=== PATIENT | female | born 1960 | race Caucasian/White ===

== ENCOUNTER → 2017-03-01 | Outpatient (CLI) | payer OTHER | LOC: BHSO 11:11 | DX: F33.41 Major depressive disorder, recurrent, in partial remission (principal) | CPT/HCPCS: 90791-AI ==

== ENCOUNTER → 2017-04-19 | Outpatient (CLI) | payer OTHER | LOC: BHSO 15:28 | DX: F33.41 Major depressive disorder, recurrent, in partial remission (principal) | CPT/HCPCS: G0463 ==

== ENCOUNTER → 2017-05-05 | Outpatient (CLI) | payer OTHER | LOC: BHSO 13:12 | DX: F33.1 Major depressive disorder, recurrent, moderate (principal) ==

== ENCOUNTER → 2017-05-08 | Outpatient (CLI) | payer OTHER | LOC: BHSO 09:04 | DX: F33.1 Major depressive disorder, recurrent, moderate (principal) ==

== ENCOUNTER → 2017-05-22 | Outpatient (CLI) | payer OTHER | LOC: BHSO 08:53 | DX: F33.1 Major depressive disorder, recurrent, moderate (principal) ==

== ENCOUNTER → 2017-06-05 | Outpatient (CLI) | payer OTHER | LOC: BHSO 09:00 | DX: F33.1 Major depressive disorder, recurrent, moderate (principal) ==

== ENCOUNTER → 2017-07-03 | Outpatient (CLI) | payer OTHER | LOC: BHSO 09:02 | DX: F32.1 Major depressive disorder, single episode, moderate (principal) ==

== ENCOUNTER → 2017-07-27 | Outpatient (CLI) | payer OTHER | LOC: BHSO 11:25 | DX: F33.41 Major depressive disorder, recurrent, in partial remission (principal) | CPT/HCPCS: G0463 ==

== ENCOUNTER 2017-08-02 13:36 | Outpatient (RCR) | payer OTHER | END 2017-08-15 | disposition home or self-care (01) | LOC: COL.CR | DX: Z48.812 Encounter for surgical aftercare following surgery on the circulatory system (principal); Z95.5 Presence of coronary angioplasty implant and graft; I25.10 Atherosclerotic heart disease of native coronary artery without angina pectoris ==

== ENCOUNTER 2017-10-13 09:33 | Day surgery (SDC) | payer MEDICARE, OTHER ==
[~2017-10-13] VITALS: Ht 160 cm; Wt 80.8 kg
[2017-10-13] MEDS ORDERED: RT ADVAIR 528 DISKUS IH (09:57)
[2017-10-13] MEDS ORDERED: ASPIRIN 81M81 MG/TA2 PO (09:58)
[2017-10-13] MEDS ORDERED: ATIVAN 0.50.5 MG/TAB PO (09:58)
[2017-10-13] MEDS ORDERED: BRILINTA90 MG PO (09:58)
[2017-10-13] MEDS ORDERED: CYMBALTA 60MG60 MG PO (09:59)
[2017-10-13] MEDS ORDERED: CRESTOR40 MG PO (09:59)
[2017-10-13] MEDS ORDERED: IMDUR 60MG60 MG/TAB PO (09:59)
[2017-10-13] MEDS ORDERED: KLOR-CON M2020 MEQ PO (10:00)
[2017-10-13] MEDS ORDERED: LASIX 20MG TABL20 MG PO (10:00)
[2017-10-13] MEDS ORDERED: TOPROL XL 50MG50 MG PO (10:01)
[2017-10-13] MEDS ORDERED: MAG-OX 400400 MG/TAB PO (10:01)
[2017-10-13] MEDS ORDERED: NEURONTIN100 MG/CAP PO (10:01)
[2017-10-13] MEDS ORDERED: OXAYDO5 MG PO (10:02)
[2017-10-13] MEDS ORDERED: NITROSTAT0.4 MG/TAB SL (10:02)
[2017-10-13] MEDS ORDERED: RANEXA1000 MG PO (10:02)
[2017-10-13] MEDS ORDERED: REQUIP 0.5MG0.5 MG PO (10:03)
[2017-10-13] MEDS ORDERED: SINGULAIR 110 MG/TAB PO (10:03)
[2017-10-13] MEDS ORDERED: TOPAMAX 100MG100 M1 PO (10:04)
[2017-10-13] MEDS ORDERED: SYNTHROID0.175 MG PO (10:04)
[2017-10-13] MEDS ORDERED: CLARITIN 1010 MG/TAB PO (10:05)
[2017-10-13] MEDS ORDERED: WELLBUTRIN XL300 M1 PO (10:05)
[2017-10-13] MEDS ORDERED: ZANTAC 150MG T150 MG PO (10:05)
[2017-10-13] MEDS ORDERED: ZANAFLEX 4MG TAB4 MG PO (10:05)
[2017-10-13] MEDS ORDERED: MELAT3MGTAB PO (10:06)
[2017-10-13] MEDS ORDERED: THE MEDICINE S200 M2 PO (10:06)
[2017-10-13] MEDS ORDERED: VITAMIND3 5000 PO (10:07)
[2017-10-13] MEDS ORDERED: TYLENOL 500MG500 MG PO (10:07)
[2017-10-13] MEDS ORDERED: MULTIVITAMIN FO1 CAP PO (10:08)
[2017-10-13 10:09] VITALS: BP 123/70; PULSE 77; TEMP 98.4
[2017-10-13 11:20] VITALS: BP 103/62; PULSE 67; TEMP 97
[2017-10-13 11:35] VITALS: BP 103/64; PULSE 68
[2017-10-13 11:50] VITALS: BP 119/67; PULSE 68
== END 2017-10-13 12:07 | disposition home or self-care (01) ==
LOC: SDCO 09:33
DX: Z12.11 Encounter for screening for malignant neoplasm of colon (principal); D12.0 Benign neoplasm of cecum; D12.5 Benign neoplasm of sigmoid colon; K31.84 Gastroparesis; K29.30 Chronic superficial gastritis without bleeding; K21.9 Gastro-esophageal reflux disease without esophagitis; K59.00 Constipation, unspecified; E78.00 Pure hypercholesterolemia, unspecified; D64.9 Anemia, unspecified; K59.09 Other constipation; J45.909 Unspecified asthma, uncomplicated; F32.9 Major depressive disorder, single episode, unspecified; F41.9 Anxiety disorder, unspecified; Z88.6 Allergy status to analgesic agent; Z88.8 Allergy status to other drugs, medicaments and biological substances; Z79.82 Long term (current) use of aspirin; Z90.710 Acquired absence of both cervix and uterus; Z90.10 Acquired absence of unspecified breast and nipple; Z85.3 Personal history of malignant neoplasm of breast; Z80.0 Family history of malignant neoplasm of digestive organs
CPT/HCPCS: J2704; J7120

== ENCOUNTER 2017-11-16 10:22 | Day surgery (SDC) | payer MEDICARE, OTHER ==
[2017-11-16] VITALS (13 sets, daily range): BP systolic 90–111; BP diastolic 59–67; PULSE 70–83; TEMP 97.9
[~2017-11-16] VITALS: Ht 160.1 cm; Wt 80.9 kg
[~2017-11-16 10:22] MED LIST: ASPIRIN 81M81 MG/TA2 PO; ATIVAN 0.50.5 MG/TAB PO; BRILINTA90 MG PO; CLARITIN 1010 MG/TAB PO; CRESTOR40 MG PO; CYMBALTA 60MG60 MG PO; IMDUR 60MG60 MG/TAB PO; KLOR-CON M2020 MEQ PO; LASIX 20MG TABL20 MG PO; MAG-OX 400400 MG/TAB PO; MELAT3MGTAB PO; MULTIVITAMIN FO1 CAP PO; NEURONTIN100 MG/CAP PO; NITROSTAT0.4 MG/TAB SL; OXAYDO5 MG PO; RANEXA1000 MG PO; REQUIP 0.5MG0.5 MG PO; RT ADVAIR 528 DISKUS IH; SINGULAIR 110 MG/TAB PO; SYNTHROID0.175 MG PO; THE MEDICINE S200 M2 PO; TOPAMAX 100MG100 M1 PO; TOPROL XL 50MG50 MG PO; TYLENOL 500MG500 MG PO; VITAMIND3 5000 PO; WELLBUTRIN XL300 M1 PO; ZANAFLEX 4MG TAB4 MG PO; ZANTAC 150MG T150 MG PO
[2017-11-16 10:58] LABS: HEMATOCRIT 39.1 % (37.0-47.0); HEMOGLOBIN 13.3 g/dl (12.5-16.0); MEAN CELL VOLUME 93 fl (80.0-100.0); MEAN CORPUSCULAR HEMOGLOBIN 32 pg (27.0-31.0); MEAN CORPUSCULAR HGB CONC 34 g/dl (33.0-37.0); MEAN PLATELET VOLUME 8.9 fl (7.4-10.4); PLATELET COUNT 236 K/mm3 (130-400); RED BLOOD COUNT 4.21 M/mm3 (4.10-5.30); REDCELL DISTRIBUTION WIDTH-CV 13.1 % (11.5-14.5)
[2017-11-16] MEDS ORDERED: ACIPHEX20 MG PO (11:03)
[2017-11-16] MEDS ORDERED: ALIGN PO (11:04)
[2017-11-16] MEDS ORDERED: IRON TABLETS325 MG PO (11:05)
[2017-11-16 11:07] LABS: PROTHROMBIN TIME 11.3 SECONDS (9.7-12.8)
[2017-11-16 11:08] LABS: CALCIUM 8.9 mg/dL (8.4-10.2); CREATININE, serum 1.28 mg/dL (0.52-1.25); POTASSIUM 3.5 mmol/L (3.4-5.0)
[2017-11-16] MEDS ORDERED: TOPROL XL 50MG50 MG PO (12:30)
== END 2017-11-16 17:58 | disposition home or self-care (01) ==
LOC: COL.CAR 10:22
PROVIDERS: Internal Medicine Cardiovascular Disease
DX: I25.110 Atherosclerotic heart disease of native coronary artery with unstable angina pectoris (principal); J45.909 Unspecified asthma, uncomplicated; I11.0 Hypertensive heart disease with heart failure; I50.9 Heart failure, unspecified; E78.5 Hyperlipidemia, unspecified; E03.9 Hypothyroidism, unspecified; G62.9 Polyneuropathy, unspecified; R41.3 Other amnesia; Z90.710 Acquired absence of both cervix and uterus; Z90.13 Acquired absence of bilateral breasts and nipples; Z96.651 Presence of right artificial knee joint; Z95.1 Presence of aortocoronary bypass graft; Z95.5 Presence of coronary angioplasty implant and graft; Z88.8 Allergy status to other drugs, medicaments and biological substances; Z88.6 Allergy status to analgesic agent; Z91.040 Latex allergy status; Z79.82 Long term (current) use of aspirin; Z79.51 Long term (current) use of inhaled steroids; Z85.3 Personal history of malignant neoplasm of breast; Z80.3 Family history of malignant neoplasm of breast; Z82.49 Family history of ischemic heart disease and other diseases of the circulatory system; Z80.42 Family history of malignant neoplasm of prostate; Z80.8 Family history of malignant neoplasm of other organs or systems; Z80.1 Family history of malignant neoplasm of trachea, bronchus and lung
CPT/HCPCS: J1644; J2250; J2405; J3010; Q9967

== ENCOUNTER → 2017-12-01 | Outpatient (CLI) | payer MEDICARE, OTHER ==
[~2017-12-01] MED LIST changes: +ACIPHEX20 MG PO; +ALIGN PO; +IRON TABLETS325 MG PO
== END ==
LOC: COL.RAD 08:06
DX: K59.09 Other constipation (principal); R11.0 Nausea; R12 Heartburn
CPT/HCPCS: A9541

== ENCOUNTER → 2017-12-07 | Outpatient (CLI) | payer MEDICARE, OTHER | LOC: BHSO 10:05 | DX: F33.41 Major depressive disorder, recurrent, in partial remission (principal) | CPT/HCPCS: G0463 ==

== ENCOUNTER → 2018-02-01 | Outpatient (CLI) | payer MEDICARE, OTHER ==
[~2018-02-01] VITALS: Ht 160 cm; Wt 82.8 kg
[~2018-02-01] MED LIST changes: -ASPIRIN 81M81 MG/TA2 PO; +ASPIRIN E.C. 8181 MG PO; +FLONASE NASAL S16 GM NS; -NEURONTIN100 MG/CAP PO; +NEURONTIN300 MG/CAP PO; +REPATHA SU140 MG/1 M SQ; -TYLENOL 500MG500 MG PO; +TYLENOL 8 HR PO; +ULTRAM 50MG TAB50 MG PO; +VENTOLIN0.09 MG IH
[2018-02-01 13:41] VITALS: BP 122/70; PULSE 72
== END ==
LOC: LIGHT 09:03
DX: E03.9 Hypothyroidism, unspecified (principal); G47.33 Obstructive sleep apnea (adult) (pediatric); F32.9 Major depressive disorder, single episode, unspecified; E66.9 Obesity, unspecified; Z68.32 Body mass index [BMI] 32.0-32.9, adult; Z71.3 Dietary counseling and surveillance
CPT/HCPCS: G0463

== ENCOUNTER → 2018-02-05 | Outpatient (CLI) | payer MEDICARE, OTHER | LOC: LIGHT 07:33 | DX: E03.9 Hypothyroidism, unspecified (principal); G47.33 Obstructive sleep apnea (adult) (pediatric); F32.9 Major depressive disorder, single episode, unspecified; E66.9 Obesity, unspecified; Z68.32 Body mass index [BMI] 32.0-32.9, adult; Z71.3 Dietary counseling and surveillance ==

== ENCOUNTER → 2018-02-06 | Outpatient (CLI) | payer MEDICARE, OTHER | LOC: MC.RAD 01-30 09:00 | DX: C50.411 Malignant neoplasm of upper-outer quadrant of right female breast (principal); N63.20 Unspecified lump in the left breast, unspecified quadrant ==

== ENCOUNTER → 2018-02-13 | Outpatient (CLI) | payer MEDICARE, OTHER | LOC: BHSO 10:03 | DX: F33.1 Major depressive disorder, recurrent, moderate (principal) ==

== ENCOUNTER → 2018-02-22 | Outpatient (CLI) | payer MEDICARE, OTHER | LOC: BHSO 11:40 | DX: F33.42 Major depressive disorder, recurrent, in full remission (principal) | CPT/HCPCS: G0463 ==

== ENCOUNTER → 2018-03-06 | Outpatient (CLI) | payer MEDICARE, OTHER | LOC: BHSO 11:07 | DX: F33.0 Major depressive disorder, recurrent, mild (principal) ==

== ENCOUNTER → 2018-03-07 | Outpatient (CLI) | payer MEDICARE, OTHER | LOC: COL.PUL 13:00 | DX: J45.40 Moderate persistent asthma, uncomplicated (principal) | CPT/HCPCS: J7674 ==

== ENCOUNTER → 2018-03-15 | Outpatient (CLI) | payer MEDICARE, OTHER ==
[~2018-03-15] VITALS: Ht 160 cm; Wt 81.9 kg
[2018-03-15 12:02] VITALS: BP 106/70; PULSE 76
== END ==
LOC: LIGHT 11:51
DX: E03.9 Hypothyroidism, unspecified (principal); G47.33 Obstructive sleep apnea (adult) (pediatric); F32.9 Major depressive disorder, single episode, unspecified; E66.9 Obesity, unspecified; Z68.32 Body mass index [BMI] 32.0-32.9, adult; Z71.3 Dietary counseling and surveillance
CPT/HCPCS: G0463

== ENCOUNTER → 2018-03-28 | Outpatient (CLI) | payer MEDICARE, OTHER | LOC: BHSO 11:04 | DX: F33.1 Major depressive disorder, recurrent, moderate (principal) ==

== ENCOUNTER → 2018-04-05 | Outpatient (CLI) | payer MEDICARE, OTHER ==
[~2018-04-05] VITALS: Ht 160 cm; Wt 80.7 kg
[2018-04-05 11:52] VITALS: BP 98/50; PULSE 76
== END ==
LOC: LIGHT 10:21
DX: E03.9 Hypothyroidism, unspecified (principal); G47.33 Obstructive sleep apnea (adult) (pediatric); F32.9 Major depressive disorder, single episode, unspecified; E66.9 Obesity, unspecified; Z68.31 Body mass index [BMI] 31.0-31.9, adult; Z71.3 Dietary counseling and surveillance
CPT/HCPCS: G0463

== ENCOUNTER → 2018-04-18 | Outpatient (CLI) | payer MEDICARE, OTHER | LOC: BHSO 11:04 | DX: F33.0 Major depressive disorder, recurrent, mild (principal) ==

== ENCOUNTER → 2018-05-10 | Outpatient (CLI) | payer MEDICARE, OTHER ==
[~2018-05-10] VITALS: Ht 160 cm; Wt 80.3 kg
[~2018-05-10] MED LIST changes: +EMGALITY120 MG/1 M SQ
[2018-05-10 14:55] VITALS: BP 126/82; PULSE 100
== END ==
LOC: LIGHT 11:44
DX: E03.9 Hypothyroidism, unspecified (principal); G47.33 Obstructive sleep apnea (adult) (pediatric); F32.9 Major depressive disorder, single episode, unspecified; E66.9 Obesity, unspecified; Z68.31 Body mass index [BMI] 31.0-31.9, adult; Z71.3 Dietary counseling and surveillance
CPT/HCPCS: G0463

== ENCOUNTER → 2018-05-29 | Outpatient (CLI) | payer MEDICARE, OTHER | LOC: BHSO 11:29 | DX: F33.42 Major depressive disorder, recurrent, in full remission (principal) | CPT/HCPCS: G0463 ==

== ENCOUNTER → 2018-06-12 | Outpatient (CLI) | payer MEDICARE, OTHER | LOC: BHSO 12:58 | DX: F33.1 Major depressive disorder, recurrent, moderate (principal) ==

== ENCOUNTER → 2018-07-25 | Outpatient (CLI) | payer MEDICARE, OTHER | LOC: BHSO 13:06 | DX: F33.1 Major depressive disorder, recurrent, moderate (principal) ==

== ENCOUNTER 2018-08-06 10:58 | Outpatient (CLI) | payer MEDICARE, OTHER ==
[~2018-08-06] VITALS: Ht 160 cm; Wt 83.0 kg
[~2018-08-06 10:58] MED LIST changes: -REQUIP 0.5MG0.5 MG PO; +REQUIP2 MG PO; +SYNTHROID0.05 MG/TA PO; -SYNTHROID0.175 MG PO
[2018-08-06 11:37] VITALS: BP 113/59; PULSE 76; TEMP 98.2
[2018-08-06] MEDS ORDERED: SPIRIVA RE2.5 MCG/Ac IH (11:48)
[2018-08-06] MEDS ORDERED: DEXILANT60 MG PO (11:58)
[2018-08-06] MEDS ORDERED: REQUIP0.25 MG PO (12:01)
[2018-08-06] MEDS ORDERED: BELVIQ PO (12:02)
== END 2018-08-06 12:07 | disposition home or self-care (01) ==
LOC: EUO 10:58
DX: Z79.899 Other long term (current) drug therapy (principal)
CPT/HCPCS: J0517

== ENCOUNTER → 2018-08-22 | Outpatient (CLI) | payer MEDICARE, OTHER ==
[~2018-08-22] MED LIST changes: +BELVIQ PO; +DEXILANT60 MG PO; +REQUIP0.25 MG PO; +SPIRIVA RE2.5 MCG/Ac IH
== END ==
LOC: BHSO 13:05
DX: F33.1 Major depressive disorder, recurrent, moderate (principal)

== ENCOUNTER → 2018-08-29 | Outpatient (CLI) | payer MEDICARE, OTHER | LOC: BHSO 13:05 | DX: F33.41 Major depressive disorder, recurrent, in partial remission (principal) | CPT/HCPCS: G0463 ==

== ENCOUNTER → 2018-09-19 | Outpatient (CLI) | payer MEDICARE, OTHER ==
[~2018-09-19] MED LIST changes: +ABILIFY2 MG PO
== END ==
LOC: BHSO 14:13
DX: F33.1 Major depressive disorder, recurrent, moderate (principal)

== ENCOUNTER 2018-10-01 22:18 | Observation (INO) | payer MEDICARE, OTHER ==
[~2018-10-01] VITALS: Ht 160 cm; Wt 84.6 kg
[2018-10-01] MEDS ORDERED: CALCIUM CARB500 MG PO (23:00)
[2018-10-01] MEDS ORDERED: FIORICET 325 MG1 TA1 PO (23:01)
[2018-10-01] MEDS ORDERED: ZOFRAN ODT4 MG PO (23:07)
[2018-10-01] MEDS ORDERED: SUDAFED30 MG PO (23:07)
[2018-10-01] MEDS ORDERED: THE MEDICINE S200 M2 PO (23:07)
[2018-10-01] MEDS ORDERED: CLARITIN 1010 MG/TAB PO (23:07)
[2018-10-01] MEDS ORDERED: FASENRA30 MG/1 ML SQ (23:07)
[2018-10-01] MEDS ORDERED: B-121000 MCG PO (23:08)
[2018-10-01 23:21] LABS: BASO % 0.1 % (0.0-2.0); GRAN # 5.1 (1.4-6.5); HEMATOCRIT 41.1 % (37.0-47.0); HEMOGLOBIN 13.8 g/dl (12.5-16.0); LYMPH # 2.6 (1.2-3.4); LYMPH % 31.3 % (20.0-51.0); MEAN CELL VOLUME 97 fl (80.0-100.0); MEAN CORPUSCULAR HEMOGLOBIN 32 pg (27.0-31.0); MEAN CORPUSCULAR HGB CONC 34 g/dl (33.0-37.0); MEAN PLATELET VOLUME 9.1 fl (7.4-10.4); MONO # 0.6 (0.1-0.6); MONO % 7.1 % (1.7-9.3); PLATELET COUNT 249 K/mm3 (130-400); RED BLOOD COUNT 4.26 M/mm3 (4.10-5.30); REDCELL DISTRIBUTION WIDTH-CV 14.2 % (11.5-14.5)
[2018-10-01 23:23] LABS: INR 0.9 (0.8-3.0); PROTHROMBIN TIME 10.3 SECONDS (9.7-12.8)
[2018-10-01 23:26] LABS: PARTIAL THROMBOPLASTIN TIME 41.8 SECONDS (26.0-37.0)
[2018-10-01 23:32] LABS: ALANINE AMINOTRANSFERASE 14 U/L (9-52); ALKALINE PHOSPHATASE 69 U/L (50-136); ANION GAP 11 mmol/L (7-16); AST,SGOT 25 U/L (15-37); BILIRUBIN,TOTAL 0.2 mg/dL (0.0-1.0); BLOOD UREA NITROGEN 16 mg/dL (7-17); CALCIUM 8.9 mg/dL (8.4-10.2); CARBON DIOXIDE 22 mmol/L (22-30); CHLORIDE 110 mmol/L (98-107); CREATINE KINASE 83 U/L (30-135); CREATININE, serum 1.01 (0.52-1.25); GLUCOSE 108 mg/dL (74-106); LIPASE 134 U/L (23-300); POTASSIUM 3.2 mmol/L (3.4-5.0); SODIUM 143 mmol/L (137-145); TOTAL PROTEIN 7.4 gm/dL (6.4-8.2)
[2018-10-01 23:44] LABS: TROPONIN-I < 0.012 ng/mL (0.000-0.035)
--- NOTE | 2018-10-02 01:34 | NUR ---
Pt arrived to room 352, transferred by ED staff. Pt awake, a&o, cooperative c cares. Pt oriented to room, unit policies et current POC. Questions invited et answered, pt verbalizes understanding. IV patent; heparin gtt infusing per orders. Tele in place. Yamini MANAGER EVENT at bedside. Will continue c admit process.
[2018-10-02] MEDS ORDERED: RT ADVAIR HFA 2312 G IH (01:46)
[2018-10-02] MEDS ORDERED: FIORICET 325 MG1 TA1 PO (01:56)
[2018-10-02] MEDS ORDERED: PERCOCET 325 MG1 TA2 PO (02:05)
[2018-10-02] MEDS ORDERED: PRINIVIL2.5 MG PO (02:18)
[2018-10-02] MEDS ORDERED: MUCINEX 60600 MG/TA1 PO ×2 (02:19)
[2018-10-02] MEDS ORDERED: TYLENOL 8 HR PO (02:27)
[2018-10-02] MEDS ORDERED: ATARAX 25MG25 MG/TAB PO (02:28)
[2018-10-02] MEDS ORDERED: TRIAM OI 15 0.025 TOP (02:28)
[2018-10-02] MEDS ORDERED: MULTIPLE VITAMI1 CAP PO (02:28)
[2018-10-02] MEDS ORDERED: ROBITUSSIN100 MG/5 M PO (02:29)
[2018-10-02] MEDS ORDERED: VITAMIN C500 MG PO (02:29)
[2018-10-02] MEDS ORDERED: YUVAFEM10 MCG VG (02:30)
[2018-10-02 02:43] LABS: MAGNESIUM 2.3 mg/dL (1.6-2.3)
[2018-10-02 02:52] VITALS: BP 120/53; PULSE 78; TEMP 97.6
[2018-10-02 03:02] LABS: TROPONIN-I 3 HR POST INITIAL < 0.012 ng/mL (0.000-0.034)
--- NOTE | 2018-10-02 07:00 | NUR ---
Report recieved from KATELYN Cain. Patient resting in bed with report of 2/10 chest pressure. Heparin gtt infusing at 9.9ml/hr and MIVF running as ordered. Patient denies further needs at this time. Care assumed.
[2018-10-02 08:00] VITALS: BP 90/44; PULSE 72; TEMP 97.5
--- NOTE | 2018-10-02 10:30 | NUR ---
SW attended clinical rounds. Patient lives independently at home with her . Patient's PCP is Dr Romano on [facility] and she obtains prescriptions from the [facility]. Patient has a bipap at home but no other dme is reported. Patient does not use home health services. SW does not anticipate any discharge needs.
--- NOTE | 2018-10-02 10:50 | NUR ---
Dr. Holbrook rounds at this time. No new orders recieved. Care ongoing.
[2018-10-02 11:12] VITALS: BP 104/46; PULSE 70; TEMP 98.4
--- NOTE | 2018-10-02 11:45 | NUR ---
Dr. Hilario rounds at this time. No new orders recieved.
--- NOTE | 2018-10-02 12:02 | NUR ---
Willow, transcribing machine mechanic called to clarify POC. States patient to have lexiscan tomorrow that she will verify with MD and call this nurse back.
--- NOTE | 2018-10-02 13:40 | NUR ---
Spoke with pt concerning Heart Failure Management. Pt currently on Alonzo/BB/Lasix/ASA/Brilinta. Pt stated she does not weigh herself everyday due to "frustration of gaining weight". Reinforced with pt that weight gain due to water accumulates faster and spoke about 2-3# gain in 3 days/5# in a week. Also talke with pt about monitoring BLE/Orthopnea and contacting office concerning possibility of increasing dosage of Lasix. Discussed the difference of SOB with Heart Failure vs SOB associated with CP. Encouraged pt she was correct in getting help for evaluation of symptoms for this admit. Spoke of diet and options for fluid control/salt control. "I am very careful of the salt that I eat.". Pt to have stress test tomorrow. Will continue to be available for information for patient.
[2018-10-02 16:10] VITALS: BP 98/46; PULSE 77; TEMP 98.3
[2018-10-02 20:19] VITALS: BP 112/66; PULSE 82; TEMP 97.8
--- NOTE | 2018-10-02 20:45 | NUR ---
Shift assessment complete. Pt resting in bed, awake, a&o, cooperative c cares. Pt reports continued chest pain, described as "just a little ache", denies need for intervention. IV patent; IVF's et Heparin infusing per orders. Tele in place. Pt denies further needs. Call light in reach, will continue to monitor.
[2018-10-03] VITALS (8 sets, daily range): BP systolic 109–135; BP diastolic 57–82; PULSE 71–117; TEMP 97.8–98.2
[2018-10-03 06:15] LABS: BASO % 0.1 % (0.0-2.0); GRAN # 4.9 (1.4-6.5); GRAN % 64.7 % (42.2-75.2); HEMATOCRIT 39.9 % (37.0-47.0); HEMOGLOBIN 13.4 g/dl (12.5-16.0); LYMPH # 2.2 (1.2-3.4); LYMPH % 29.3 % (20.0-51.0); MEAN CELL VOLUME 97 fl (80.0-100.0); MEAN CORPUSCULAR HEMOGLOBIN 32 pg (27.0-31.0); MEAN CORPUSCULAR HGB CONC 34 g/dl (33.0-37.0); MEAN PLATELET VOLUME 9.1 fl (7.4-10.4); MONO # 0.4 (0.1-0.6); MONO % 5.4 % (1.7-9.3); PLATELET COUNT 239 K/mm3 (130-400); RED BLOOD COUNT 4.13 M/mm3 (4.10-5.30); REDCELL DISTRIBUTION WIDTH-CV 14.3 % (11.5-14.5)
[2018-10-03 06:31] LABS: ALBUMIN 3.8 gm/dL (3.5-5.0); BILIRUBIN,TOTAL 0.4 mg/dL (0.0-1.0); CALCIUM 9.1 mg/dL (8.4-10.2); CREATININE, serum 0.98 (0.52-1.25); POTASSIUM 3.7 mmol/L (3.4-5.0)
--- NOTE | 2018-10-03 08:31 | NUR ---
Pt taken down for stress test. NItro paste and metoprolol held per radiology nurse and pt own med not given before pt went down for procedure will give after. Pt alert and oriented. Pt IV patent and Heparin running at 12ml/hr and no change with HepXA result. Pt rates pain 2/10. Pt just had ECHO completed.
--- NOTE | 2018-10-03 09:57 | NUR ---
Initial visit; Patient thanked Book Agent for offering encouragement and further spiritual care.
--- NOTE | 2018-10-03 10:30 | NUR ---
Pt alert and oriented. Pt returned from heart cath. Pt denies pain or SOB. Pt has call light in reach.
[2018-10-03] MEDS ORDERED: NITRO-DUR0.2 MG/PAT TD (15:04)
--- NOTE | 2018-10-03 15:46 | NUR ---
Pt alert and oriented. Pt seth pain at this time. Pt reports SOB with minimal exertion. Pt on room air. Pt sitting up in bed with spouse at bedside. Pt ready to go home. Telemetry discontinued. Pt IV discontinued and tip intact and no redness noted. Pt given discharge orders and education on nitro patch and continued medications. Pt denies further questions at this time. Pt has all belongings.
--- NOTE | 2018-10-03 16:22 | NUR ---
Pt alert and oriented. Pt discharge instructions reviewed and education given. Pt IV discontinued from left AC tip intact no redness or infiltration noted. Pt has all belongings. Pt escorted out via wheelchair by aide.
== END 2018-10-03 16:35 | disposition home or self-care (01) ==
LOC: COL.ER 22:18 → MEDICAL 10-02 00:55
PROVIDERS: Emergency Medicine; Nurse Practitioner Family; ADMIT Hospitalist
DX: I20.0 Unstable angina (principal); I13.0 Hypertensive heart and chronic kidney disease with heart failure and stage 1 through stage 4 chronic kidney disease, or unspecified chronic kidney disease; N18.9 Chronic kidney disease, unspecified; I50.9 Heart failure, unspecified; E78.5 Hyperlipidemia, unspecified; G47.33 Obstructive sleep apnea (adult) (pediatric); J45.909 Unspecified asthma, uncomplicated; E03.9 Hypothyroidism, unspecified; Z85.3 Personal history of malignant neoplasm of breast; Z90.11 Acquired absence of right breast and nipple; M19.90 Unspecified osteoarthritis, unspecified site; F32.9 Major depressive disorder, single episode, unspecified; F41.9 Anxiety disorder, unspecified; G43.909 Migraine, unspecified, not intractable, without status migrainosus; F90.9 Attention-deficit hyperactivity disorder, unspecified type; K21.9 Gastro-esophageal reflux disease without esophagitis; E66.9 Obesity, unspecified; G25.81 Restless legs syndrome; E87.6 Hypokalemia; Z79.82 Long term (current) use of aspirin; Z95.1 Presence of aortocoronary bypass graft; I25.2 Old myocardial infarction; I07.1 Rheumatic tricuspid insufficiency; Z90.710 Acquired absence of both cervix and uterus; Z90.13 Acquired absence of bilateral breasts and nipples; Z96.659 Presence of unspecified artificial knee joint; Z96.651 Presence of right artificial knee joint; Z95.5 Presence of coronary angioplasty implant and graft; Z91.040 Latex allergy status; Z88.6 Allergy status to analgesic agent; Z88.8 Allergy status to other drugs, medicaments and biological substances
CPT/HCPCS: A9500; G0378; J1644; J2270; J2405; J2785; J3480; J7030

== ENCOUNTER → 2018-10-04 | Outpatient (CLI) | payer MEDICARE, OTHER ==
[~2018-10-04] MED LIST changes: +ATARAX 25MG25 MG/TAB PO; +B-121000 MCG PO; +CALCIUM CARB500 MG PO; +FASENRA30 MG/1 ML SQ; +FIORICET 325 MG1 TA1 PO; +MUCINEX 60600 MG/TA1 PO; +MULTIPLE VITAMI1 CAP PO; +NITRO-DUR0.2 MG/PAT TD; +PERCOCET 325 MG1 TA2 PO; +PRINIVIL2.5 MG PO; +ROBITUSSIN100 MG/5 M PO; +RT ADVAIR HFA 2312 G IH; +SUDAFED30 MG PO; +TRIAM OI 15 0.025 TOP; +VITAMIN C500 MG PO; +YUVAFEM10 MCG VG; +ZOFRAN ODT4 MG PO
== END ==
LOC: BHSO 13:09
DX: F33.1 Major depressive disorder, recurrent, moderate (principal)

== ENCOUNTER 2018-10-09 13:22 | Outpatient (CLI) | payer MEDICARE, OTHER ==
[~2018-10-09] VITALS: Ht 160 cm; Wt 82.0 kg
[2018-10-09 13:32] VITALS: BP 115/63; PULSE 95; TEMP 97.5
--- NOTE | 2018-10-09 14:05 | NUR ---
Pt melanie prescott. Pt discharged per ambulation.
== END 2018-10-09 14:18 | disposition home or self-care (01) ==
LOC: EUO 13:22
DX: Z79.899 Other long term (current) drug therapy (principal)
CPT/HCPCS: J0517

== ENCOUNTER → 2018-10-31 | Outpatient (CLI) | payer MEDICARE, OTHER | LOC: BHSO 13:08 | DX: F33.0 Major depressive disorder, recurrent, mild (principal) ==

== ENCOUNTER → 2018-11-07 | Outpatient (CLI) | payer MEDICARE, OTHER | LOC: BHSO 13:23 | DX: F33.42 Major depressive disorder, recurrent, in full remission (principal) | CPT/HCPCS: G0463 ==

== ENCOUNTER → 2018-12-03 | Outpatient (CLI) | payer MEDICARE, OTHER ==
[~2018-12-03] MED LIST changes: +ALIGN10.5 MG PO; +BANOPHEN25 M1 PO; +COZAAR 25MG25 MG/TAB PO; +EXCEDRIN1 TAB PO; +K-DUR 10 MEQ T10 MEQ PO; +LINZESS72 MCG PO; +MUCINEX DM 60 M1 TER PO; +PROAIR HFA0.09 MG/AC IH; +TIROSINT50 MC1 PO; +VITAMINC250CH PO; +XIIDRA1 EACH OP
== END ==
LOC: BHSO 13:03
DX: F33.0 Major depressive disorder, recurrent, mild (principal)

== ENCOUNTER 2018-12-05 10:41 | Outpatient (RCR) | payer MEDICARE, OTHER ==
[~2018-12-05] VITALS: Ht 160 cm; Wt 83.6 kg
[~2018-12-05 10:41] MED LIST changes: -ALIGN10.5 MG PO; -BANOPHEN25 M1 PO; -COZAAR 25MG25 MG/TAB PO; -EXCEDRIN1 TAB PO; -K-DUR 10 MEQ T10 MEQ PO; -LINZESS72 MCG PO; -MUCINEX DM 60 M1 TER PO; -PROAIR HFA0.09 MG/AC IH; -TIROSINT50 MC1 PO; -VITAMINC250CH PO; -XIIDRA1 EACH OP
[2018-12-05] MEDS ORDERED: BANOPHEN25 M1 PO (11:23)
[2018-12-05] MEDS ORDERED: LINZESS72 MCG PO (11:24)
[2018-12-05] MEDS ORDERED: COZAAR 25MG25 MG/TAB PO (11:25)
[2018-12-05] MEDS ORDERED: NITRO-DUR0.2 MG/PAT TD (11:26)
[2018-12-05] MEDS ORDERED: K-DUR 10 MEQ T10 MEQ PO (11:26)
[2018-12-05] MEDS ORDERED: PROAIR HFA0.09 MG/AC IH (11:27)
[2018-12-05] MEDS ORDERED: TIROSINT50 MC1 PO (11:28)
[2018-12-05] MEDS ORDERED: XIIDRA1 EACH OP (11:29)
[2018-12-05] MEDS ORDERED: ALIGN10.5 MG PO (11:29)
[2018-12-05] MEDS ORDERED: VITAMINC250CH PO (11:30)
[2018-12-05] MEDS ORDERED: EXCEDRIN1 TAB PO (11:31)
[2018-12-05] MEDS ORDERED: MUCINEX DM 60 M1 TER PO (11:31)
[2018-12-05] MEDS ORDERED: TYLENOL 8 HR PO (11:32)
[2018-12-05 11:34] VITALS: BP 102/61; PULSE 84; TEMP 97.3
== END 2018-12-05 11:35 | disposition home or self-care (01) ==
LOC: EUO 10:41
DX: J45.40 Moderate persistent asthma, uncomplicated (principal); Z79.899 Other long term (current) drug therapy
CPT/HCPCS: J0517

== ENCOUNTER 2018-12-19 16:42 | Outpatient (RCR) | payer MEDICARE, OTHER ==
[~2018-12-19 16:42] MED LIST changes: +ALIGN10.5 MG PO; +BANOPHEN25 M1 PO; +COZAAR 25MG25 MG/TAB PO; +EXCEDRIN1 TAB PO; +K-DUR 10 MEQ T10 MEQ PO; +LINZESS72 MCG PO; +MUCINEX DM 60 M1 TER PO; +PROAIR HFA0.09 MG/AC IH; +TIROSINT50 MC1 PO; +XIIDRA1 EACH OP
[2019-01-16] MEDS ORDERED: ABILIFY2 MG PO (08:22)
[2019-01-16] MEDS ORDERED: ALIGN (08:54)
[2019-01-16] MEDS ORDERED: ZEBETA 5MG5 MG PO (09:45)
[2019-02-01] MEDS ORDERED: ZEBETA 5MG5 MG PO (15:37)
== END 2019-02-03 | disposition home or self-care (01) ==
LOC: COL.CR
DX: Z51.89 Encounter for other specified aftercare (principal); I25.118 Atherosclerotic heart disease of native coronary artery with other forms of angina pectoris

== ENCOUNTER → 2018-12-24 | Outpatient (CLI) | payer MEDICARE, OTHER ==
[~2018-12-24] MED LIST changes: +VITAMINC250CH PO
== END ==
LOC: BHSO 12:57
DX: F33.1 Major depressive disorder, recurrent, moderate (principal)

== ENCOUNTER 2019-01-16 06:41 | Day surgery (SDC) | payer MEDICARE, OTHER ==
[2019-01-16] VITALS (12 sets, daily range): BP systolic 84–107; BP diastolic 50–67; PULSE 70–80; TEMP 98.5
[~2019-01-16] VITALS: Ht 160.1 cm; Wt 84.4 kg
[2019-01-16 07:41] LABS: HEMATOCRIT 40.9 % (37.0-47.0); HEMOGLOBIN 13.7 g/dl (12.5-16.0); MEAN CELL VOLUME 95 fl (80.0-100.0); MEAN CORPUSCULAR HEMOGLOBIN 32 pg (27.0-31.0); MEAN CORPUSCULAR HGB CONC 34 g/dl (33.0-37.0); MEAN PLATELET VOLUME 8.9 fl (7.4-10.4); PLATELET COUNT 273 K/mm3 (130-400); RED BLOOD COUNT 4.29 M/mm3 (4.10-5.30); REDCELL DISTRIBUTION WIDTH-CV 13.6 % (11.5-14.5)
[2019-01-16 07:49] LABS: CREATININE, serum 1.12 (0.52-1.25)
[2019-01-16 08:06] LABS: INR 0.9 (0.8-3.0); PROTHROMBIN TIME 10.8 SECONDS (9.7-12.8)
[2019-01-16] MEDS ORDERED: ABILIFY2 MG PO (08:22)
[2019-01-16] MEDS ORDERED: ALIGN (08:54)
--- NOTE | 2019-01-16 09:01 | NUR ---
SEE MERGE DOCUMENTATION FOR MEDICATION ADMINISTRATION TIMES AND INTRA/POST PROCEDURE SEDATION ASSESSMENTS. PT TAKING 81MG ASA AND 90MG BRILINTA THIS AM; PHYSICIAN NOTIFIED OF THIS, PT DOES NOT NEED 325 MG ASA DOSE PREVIOUSLY ORDERED. ALLERGIES REVIEW WITH PHYSICIAN PRIOR TO CASE.
[2019-01-16] MEDS ORDERED: ZEBETA 5MG5 MG PO (09:45)
--- NOTE | 2019-01-16 09:50 | NUR ---
pt to eu 14 via bed from laboratory asst, with pt, call light in place, monitor on. Echo being done
--- NOTE | 2019-01-16 10:30 | NUR ---
con't same, no c/o, watches tv, takes pop
--- NOTE | 2019-01-16 11:30 | NUR ---
pt has no requests, con't on bedrest
--- NOTE | 2019-01-16 13:23 | NUR ---
pt finished lunch, reviewed discharge inst. with pt and on care of site, activity, and precautions. also reviewed new medication and medication list with verbal understanding.
--- NOTE | 2019-01-16 13:50 | NUR ---
pt sat up on side of bed, tolerated well, walked in nguyễn and up to b/r, no changes in site. IV d'magalie intac. and pt up in room dressed
--- NOTE | 2019-01-16 14:17 | NUR ---
pt discharged via w/c to car with
== END 2019-01-16 14:17 | disposition home or self-care (01) ==
LOC: COL.CAR 06:41
PROVIDERS: Internal Medicine Cardiovascular Disease
DX: I25.10 Atherosclerotic heart disease of native coronary artery without angina pectoris (principal); R94.39 Abnormal result of other cardiovascular function study; J45.909 Unspecified asthma, uncomplicated; I11.0 Hypertensive heart disease with heart failure; I50.9 Heart failure, unspecified; E78.5 Hyperlipidemia, unspecified; E03.9 Hypothyroidism, unspecified; R41.3 Other amnesia; G62.9 Polyneuropathy, unspecified; Z85.3 Personal history of malignant neoplasm of breast; Z90.13 Acquired absence of bilateral breasts and nipples; Z95.1 Presence of aortocoronary bypass graft; Z90.710 Acquired absence of both cervix and uterus; Z96.651 Presence of right artificial knee joint; Z91.048 Other nonmedicinal substance allergy status; Z88.8 Allergy status to other drugs, medicaments and biological substances; Z88.6 Allergy status to analgesic agent; Z91.040 Latex allergy status; Z79.82 Long term (current) use of aspirin; Z79.52 Long term (current) use of systemic steroids; Z79.51 Long term (current) use of inhaled steroids; Z80.3 Family history of malignant neoplasm of breast; Z82.49 Family history of ischemic heart disease and other diseases of the circulatory system; Z80.1 Family history of malignant neoplasm of trachea, bronchus and lung; Z80.42 Family history of malignant neoplasm of prostate
CPT/HCPCS: C1760; C1769; C1894; J1644; J2250; J2405; Q9967

== ENCOUNTER 2019-02-01 15:12 | Outpatient (CLI) | payer MEDICARE, OTHER ==
[~2019-02-01] VITALS: Ht 160 cm; Wt 86.5 kg
[2019-02-01] MEDS ORDERED: ZEBETA 5MG5 MG PO (15:37)
[2019-02-01 15:59] VITALS: BP 129/59; PULSE 72; TEMP 97.2
== END 2019-02-01 17:27 | disposition home or self-care (01) ==
LOC: EUO 15:12
DX: Z79.899 Other long term (current) drug therapy (principal)
CPT/HCPCS: J0517

== ENCOUNTER → 2019-02-01 | Outpatient (CLI) | payer MEDICARE, OTHER ==
[~2019-02-01] MED LIST changes: +ALIGN; -VITAMINC250CH PO; +ZEBETA 5MG5 MG PO
== END ==
LOC: BHSO 13:06
DX: F33.42 Major depressive disorder, recurrent, in full remission (principal)
CPT/HCPCS: G0463

== ENCOUNTER 2019-03-29 13:12 | Outpatient (CLI) | payer MEDICARE, OTHER ==
[~2019-03-29] VITALS: Ht 160 cm; Wt 85.5 kg
[2019-03-29 13:43] VITALS: BP 125/65; PULSE 69; TEMP 98
== END 2019-03-29 14:56 | disposition home or self-care (01) ==
LOC: EUO 13:12
DX: Z79.899 Other long term (current) drug therapy (principal)
CPT/HCPCS: J0517

== ENCOUNTER → 2019-04-12 | Outpatient (CLI) | payer MEDICARE, OTHER | LOC: COL.VAS 14:30 | DX: N18.3 Chronic kidney disease, stage 3 (moderate) (principal); R25.2 Cramp and spasm; Z87.2 Personal history of diseases of the skin and subcutaneous tissue; Z86.79 Personal history of other diseases of the circulatory system; Z95.1 Presence of aortocoronary bypass graft ==

== ENCOUNTER → 2019-04-18 | Outpatient (CLI) | payer MEDICARE, OTHER | LOC: COL.RAD 09:00 | DX: M89.8X9 Other specified disorders of bone, unspecified site (principal); Z85.3 Personal history of malignant neoplasm of breast | CPT/HCPCS: A9503 ==

== ENCOUNTER → 2019-05-06 | Outpatient (CLI) | payer MEDICARE, OTHER ==
[~2019-05-06] MED LIST changes: +BYDUREON B2 MG/0.85; +CHERATUSSIN AC120 ML PO; +DEMADEX 20MG20 M1 PO; +PHENERGAN 25 TA25 MG PO; +VAGIFEM10 MCG VG
== END ==
LOC: BHSO 12:57
DX: F33.0 Major depressive disorder, recurrent, mild (principal)

== ENCOUNTER 2019-05-08 13:37 | Emergency (ER) | payer MEDICARE, OTHER ==
[~2019-05-08] VITALS: Ht 160 cm; Wt 83.2 kg
[~2019-05-08 13:37] MED LIST changes: -BYDUREON B2 MG/0.85; -CHERATUSSIN AC120 ML PO; -DEMADEX 20MG20 M1 PO; -PHENERGAN 25 TA25 MG PO; -VAGIFEM10 MCG VG
[2019-05-08] MEDS ORDERED: BYDUREON B2 MG/0.85 (15:57)
[2019-05-08] MEDS ORDERED: FIORICET 325 MG1 TA1 PO (15:58)
[2019-05-08] MEDS ORDERED: CHERATUSSIN AC120 ML PO (15:59)
[2019-05-08] MEDS ORDERED: PHENERGAN 25 TA25 MG PO (15:59)
[2019-05-08] MEDS ORDERED: DEMADEX 20MG20 M1 PO (16:00)
[2019-05-08] MEDS ORDERED: VAGIFEM10 MCG VG (16:01)
[2019-05-08] MEDS ORDERED: ATIVAN 0.50.5 MG/TAB PO (16:02)
[2019-05-08] MEDS ORDERED: ALIGN PO (16:03)
[2019-05-08 16:14] VITALS: BP 119/60; PULSE 73; TEMP 98.6
== END 2019-05-08 16:23 | disposition home or self-care (01) ==
LOC: COL.ER 13:37
DX: E87.6 Hypokalemia (principal); I25.10 Atherosclerotic heart disease of native coronary artery without angina pectoris; I50.9 Heart failure, unspecified; Z95.1 Presence of aortocoronary bypass graft; Z95.5 Presence of coronary angioplasty implant and graft; Z79.82 Long term (current) use of aspirin

== ENCOUNTER 2019-05-08 16:33 | Outpatient (CLI) | payer MEDICARE, OTHER ==
[~2019-05-08 16:33] MED LIST changes: +BYDUREON B2 MG/0.85; +CHERATUSSIN AC120 ML PO; +DEMADEX 20MG20 M1 PO; +PHENERGAN 25 TA25 MG PO; +VAGIFEM10 MCG VG
[2019-05-08 20:47] VITALS: BP 122/78; PULSE 52; TEMP 97.4
== END 2019-05-08 20:48 | disposition home or self-care (01) ==
LOC: EUO 16:33
DX: E87.6 Hypokalemia (principal)
CPT/HCPCS: J3480; J7050

== ENCOUNTER 2019-05-20 15:24 | Outpatient (RCR) | payer MEDICARE, OTHER | END 2019-05-24 14:59 | disposition home or self-care (01) | LOC: COL.CR | DX: I25.119 Atherosclerotic heart disease of native coronary artery with unspecified angina pectoris (principal) ==

== ENCOUNTER → 2019-06-04 | Outpatient (CLI) | payer MEDICARE, OTHER | LOC: BHSO 13:02 | DX: F33.1 Major depressive disorder, recurrent, moderate (principal) ==

== ENCOUNTER → 2019-07-23 | Outpatient (CLI) | payer MEDICARE, OTHER | LOC: BHSO 14:00 | DX: F33.0 Major depressive disorder, recurrent, mild (principal) ==

== ENCOUNTER → 2019-08-06 | Outpatient (CLI) | payer MEDICARE, OTHER | LOC: BHSO 15:00 | DX: F33.0 Major depressive disorder, recurrent, mild (principal) ==

== ENCOUNTER 2019-08-12 08:32 | Outpatient (RCR) | payer MEDICARE, OTHER | END 2019-11-10 | disposition still patient (30) | LOC: COL.CR | DX: I20.8 Other forms of angina pectoris (principal) ==

== ENCOUNTER → 2019-08-20 | Outpatient (CLI) | payer MEDICARE, OTHER | LOC: BHSO 14:00 | DX: F33.0 Major depressive disorder, recurrent, mild (principal) ==

== ENCOUNTER → 2019-08-29 | Outpatient (CLI) | payer MEDICARE, OTHER | LOC: BHSO 14:27 | DX: F33.41 Major depressive disorder, recurrent, in partial remission (principal) | CPT/HCPCS: G0463 ==

== ENCOUNTER 2019-08-30 13:59 | Outpatient (RCR) | payer MEDICARE, OTHER | END 2019-09-01 | disposition home or self-care (01) | LOC: COL.CR | DX: I20.8 Other forms of angina pectoris (principal) ==

== ENCOUNTER → 2019-10-03 | Outpatient (CLI) | payer MEDICARE, OTHER | LOC: BHSO 10:21 | DX: F33.42 Major depressive disorder, recurrent, in full remission (principal) | CPT/HCPCS: G0463 ==

== ENCOUNTER → 2020-01-01 | Outpatient (CLI) | payer MEDICARE, OTHER | LOC: BHSO 10:35 | DX: F33.42 Major depressive disorder, recurrent, in full remission (principal) | CPT/HCPCS: G0463 ==

== ENCOUNTER 2020-03-16 13:25 | Outpatient (RCR) | payer MEDICARE, OTHER | END 2020-03-17 | disposition home or self-care (01) | LOC: COL.CR | DX: I20.9 Angina pectoris, unspecified (principal) ==

== ENCOUNTER 2020-03-30 13:43 | Outpatient (RCR) | payer MEDICARE, OTHER | END 2020-04-01 06:39 | disposition home or self-care (01) | LOC: COL.CR 13:43 | DX: I20.8 Other forms of angina pectoris (principal) ==

== ENCOUNTER 2020-05-22 15:11 | Outpatient (RCR) | payer SELFPAY | END 2020-06-30 | disposition home or self-care (01) | LOC: COL.CR | DX: Z02.89 Encounter for other administrative examinations (principal) ==

== ENCOUNTER 2020-08-07 17:03 | Outpatient (RCR) | payer SELFPAY | END 2020-10-06 | disposition home or self-care (01) | LOC: COL.CR | DX: Z02.89 Encounter for other administrative examinations (principal) ==

== ENCOUNTER 2021-03-23 11:04 | Outpatient (RCR) | payer MEDICARE, OTHER ==
[~2021-03-23] VITALS: Ht 160 cm; Wt 90.9 kg
[2021-03-23 12:19] VITALS: BP 137/78; PULSE 99; TEMP 98.4
[2021-03-23 12:29] LABS: CALCIUM 9.5 mg/dL (8.4-10.2); CREATININE, serum 1.22 mg/dL (0.57-1.11); POTASSIUM 3.4 mmol/L (3.5-4.5)
== END 2021-03-23 12:32 | disposition home or self-care (01) ==
LOC: EUO 11:04
PROVIDERS: Student in an Organized Health Care Education/Training Program
DX: I50.30 Unspecified diastolic (congestive) heart failure (principal)
CPT/HCPCS: J1940